=== PATIENT | male | born 1935 | race Caucasian/White ===

== ENCOUNTER 2020-02-04 10:49 | Emergency (ER) | payer OTHER ==
[~2020-02-04] VITALS: Ht 180.3 cm; Wt 86.2 kg
[~2020-02-04 10:49] MED LIST: FLUT250M9; FURO1TAB31; LISI-646; POTATAB
[2020-02-04] MEDS ORDERED: ASPirin 81 mg TAB PO ONE (11:30)
[2020-02-04] MEDS ORDERED: SODIUM CHLORIDE 0.9% 1,000 ML IV ONE (11:30)
[2020-02-04 12:00] LABS: Basophils # (auto) 0.1 10 ^3/uL (0-0.2); Basophils % (auto) 0.9 % (0.0-2.0); Eosinophils # (auto) 0.1 10 ^3/uL (0-0.8); Eosinophils % (auto) 1.2 % (0.0-7.0); Hematocrit 42.2 % (41.0-53.0); Hemoglobin 13.9 g/dL (13.5-17.5); Lymphocytes # (auto) 0.6 10 ^3/uL (0.4-5.4); Lymphocytes % (auto) 9.9 % (10.0-50.0); Mean Corpuscular Hemoglobin 30.7 pg (28.0-32.0); Monocytes # (auto) 0.4 10 ^3/uL (0-1.3); Monocytes % (auto) 5.6 % (0.0-12.0); Neutrophils # (auto) 5.3 10 ^3/uL (1.6-8.6); Neutrophils % (auto) 82.4 % (37.0-80.0); Platelet Count (auto) 194 10^3/uL (140-450); Red Blood Cells 4.53 10^6/uL (4.5-5.90); Red Cell Distribution Width 15.9 % (11.8-14.3); White Blood Cell 6.4 10^3/uL (4.4-10.8)
[2020-02-04 12:11] LABS: Albumin 3.6 g/dL (3.4-5.0); Anion Gap 10 (5-15); Blood Urea Nitrogen 25 mg/dL (7-18); Calcium 8.7 mg/dL (8.5-10.1); Carbon Dioxide 30 mmol/L (21-32); Chloride 100 mmol/L (98-107); Glucose 186 mg/dL (74-106); Sodium 140 mmol/L (136-145)
[2020-02-04 12:18] LABS: Alanine Aminotransferase 28 U/L (16-61); Alkaline Phosphatase 106 U/L (45-117); Aspartate Aminotransferase 16 U/L (15-37); Bilirubin, Total 0.5 mg/dL (0.2-1.0); GFR African American 43 mL/min; GFR Non-African American 36 mL/min; Total Protein 7.1 g/dL (6.4-8.2)
[2020-02-04 12:25] LABS: INR 1.01 (0.9-1.15); Partial Thromboplastin Time 22.4 sec (23.0-31.2)
[2020-02-04 12:26] LABS: Potassium 2.5 mmol/L (3.5-5.1)
[2020-02-04] MEDS ORDERED: POTASSIUM EFFERVESENT TAB 25 MEQ PO ONE (12:45)
[2020-02-04 17:00] VITALS: BP 130/56
== END 2020-02-04 17:52 | disposition home or self-care (01) ==
LOC: EDBD 10:49 → ER 10:49
DX: R53.1 Weakness (principal); E87.6 Hypokalemia; R73.9 Hyperglycemia, unspecified; R60.0 Localized edema; J84.10 Pulmonary fibrosis, unspecified; I13.0 Hypertensive heart and chronic kidney disease with heart failure and stage 1 through stage 4 chronic kidney disease, or unspecified chronic kidney disease; N18.30 Chronic kidney disease, stage 3 unspecified; I50.9 Heart failure, unspecified; J44.9 Chronic obstructive pulmonary disease, unspecified; Z90.49 Acquired absence of other specified parts of digestive tract
CPT/HCPCS: 36415; 71045; 80053; 83735; 83880; 84443; 84484; 85025; 85379; 85610; 85730; 93005; 96360; 99285; J7030

== ENCOUNTER 2022-11-10 20:16 | Inpatient (IN) | payer OTHER ==
[~2022-11-10] VITALS: Ht 180.3 cm; Wt 93.7 kg
[~2022-11-10 20:16] MED LIST changes: -LISI-646; +LISI20TA56
[2022-11-10] MEDS ORDERED: dilTIAZem 25 MG/5 ML VIAL IV ONE ×2 (20:30→21:15)
[2022-11-10 20:35] VITALS: PULSE 127; RESP 12; O2SAT 99
[2022-11-10 21:04] LABS: Basophils # (auto) 0 10 ^3/uL (0-0.2); Basophils % (auto) 0.7 % (0.0-2.0); Eosinophils # (auto) 0.5 10 ^3/uL (0-0.8); Eosinophils % (auto) 7.3 % (0.0-7.0); Hematocrit 24.8 % (41.0-53.0); Hemoglobin 8.1 g/dL (13.5-17.5); Lymphocytes # (auto) 1.1 10 ^3/uL (0.4-5.4); Lymphocytes % (auto) 17.3 % (10.0-50.0); Mean Corpuscular Hgb Conc. 32.5 g/dL (32.0-36.0); Mean Corpuscular Volume 92.3 fL (80.0-100.0); Monocytes # (auto) 0.6 10 ^3/uL (0-1.3); Monocytes % (auto) 9.3 % (0.0-12.0); Neutrophils # (auto) 4.2 10 ^3/uL (1.6-8.6); Neutrophils % (auto) 65.4 % (37.0-80.0); Nucleated Red Blood Cells % 0.1 %; Red Blood Cells 2.69 10^6/uL (4.5-5.90); Red Cell Distribution Width 15.6 % (11.8-14.3); White Blood Cell 6.5 10^3/uL (4.4-10.8)
[2022-11-10 21:06] LABS: Urine Bacteria FEW /hpf (None Seen); Urine Blood TRACE /uL (Negative); Urine Specific Gravity 1.008 (1.001-1.035); Urine WBC 57 /hpf (0 - 3)
[2022-11-10] MEDS ORDERED: cefTRIAXone 1GM/50ML D5W 50 ML IV ONE (21:15)
[2022-11-10 21:19] LABS: Albumin 2.9 g/dL (3.4-5.0); Calcium 8.2 mg/dL (8.5-10.1); Magnesium 2.6 mg/dL (1.6-2.6)
[2022-11-10 21:21] LABS: INR 1.44 (0.9-1.15); Partial Thromboplastin Time 36.2 SEC (24.5-34.5)
[2022-11-10 21:22] LABS: BUN/Creatinine Ratio 18.9 (10.0-20.0); Bilirubin, Total 0.2 mg/dL (0.2-1.0); Total Protein 6.9 g/dL (6.4-8.2)
[2022-11-10 21:59] LABS: Potassium 2.8 mmol/L (3.5-5.1)
[2022-11-10] MEDS ORDERED: LIDOCAINE 2% JELLY 11ml (GLYDO) UR ONE (22:15)
[2022-11-10] MEDS ORDERED: POTASSIUM CHL 20MEQ/100ML 100 ML IV ONE (22:15)
[2022-11-10] MEDS ORDERED: ONDANSETRON HCL 4 MG/2 ML VIAL IV PRN (22:30)
[2022-11-10] MEDS ORDERED: NITROGLYCERIN 0.4 MG SL TAB SL PRN (22:30)
[2022-11-10] MEDS ORDERED: cefTRIAXone 1GM/50ML D5W 50 ML IV SCH (22:37)
[2022-11-10] MEDS ORDERED: METOPROLOL TARTRATE 1MG/1ML-5ML VIAL IV ONE (22:45)
[2022-11-10] MEDS ORDERED: DIGOXIN (250MCG/ML) 2 ML AMPULE IV ONE (23:30)
[2022-11-11 04:45] VITALS: PULSE 55; RESP 12; O2SAT 100
[2022-11-11 04:47] LABS: Basophils # (auto) 0 10 ^3/uL (0-0.2); Eosinophils # (auto) 0.5 10 ^3/uL (0-0.8); Mean Corpuscular Hemoglobin 30.4 pg (28.0-32.0); Monocytes # (auto) 0.6 10 ^3/uL (0-1.3)
[2022-11-11 04:49] LABS: Basophils % (auto) 0.5 % (0.0-2.0); Eosinophils % (auto) 7.4 % (0.0-7.0); Hemoglobin 7.7 g/dL (13.5-17.5); Lymphocytes # (auto) 0.8 10 ^3/uL (0.4-5.4); Lymphocytes % (auto) 12.5 % (10.0-50.0); Mean Corpuscular Hgb Conc. 33.3 g/dL (32.0-36.0); Mean Corpuscular Volume 91.3 fL (80.0-100.0); Monocytes % (auto) 8.8 % (0.0-12.0); Neutrophils # (auto) 4.6 10 ^3/uL (1.6-8.6); Neutrophils % (auto) 70.8 % (37.0-80.0); Nucleated Red Blood Cells % 0.1 %; Red Blood Cells 2.53 10^6/uL (4.5-5.90); Red Cell Distribution Width 15.4 % (11.8-14.3); White Blood Cell 6.6 10^3/uL (4.4-10.8)
[2022-11-11 05:06] LABS: BUN/Creatinine Ratio 20.5 (10.0-20.0); Calcium 8.3 mg/dL (8.5-10.1)
[2022-11-11 05:10] LABS: Potassium 2.9 mmol/L (3.5-5.1)
[2022-11-11] MEDS ORDERED: POTASSIUM CHL 20 Meq TABLET PO ONE (07:00)
[2022-11-11 07:40] VITALS: PULSE 55; RESP 10; O2SAT 100
[2022-11-11] MEDS: RANOLAZINE ER 500 MG TAB PO SCH ×2 (09:40→22:20)
[2022-11-11] MEDS: cefTRIAXone 1GM/50ML D5W 50 ML IV SCH (09:40)
[2022-11-11] MEDS: PANTOPRAZOLE 40 MG TAB PO SCH (09:41)
[2022-11-11] MEDS: RIVAROXABAN 15 MG TAB PO SCH (09:41)
[2022-11-11] MEDS ORDERED: FUROSEMIDE 40 MG TAB PO SCH (10:00)
[2022-11-11] MEDS ORDERED: METOPROLOL TARTRATE 25 MG TAB PO SCH (10:00)
[2022-11-11] MEDS ORDERED: ATORVASTATIN 20 MG TAB PO SCH (22:00)
[2022-11-11 22:04] VITALS: BP 124/71; PULSE 66; RESP 18; RESP 20; TEMP 98.3; O2SAT 100
[2022-11-11] MEDS: FUROSEMIDE 40 MG TAB PO SCH (22:20)
[2022-11-11] MEDS: METOPROLOL TARTRATE 25 MG TAB PO SCH (22:21)
[2022-11-12 05:00] VITALS: BP 119/36; PULSE 66; RESP 17; TEMP 98.3; O2SAT 95
[2022-11-12 07:01] LABS: BUN/Creatinine Ratio 20.4 (10.0-20.0); Calcium 8.6 mg/dL (8.5-10.1); Magnesium 2.6 mg/dL (1.6-2.6)
[2022-11-12 08:00] VITALS: PULSE 81
[2022-11-12] MEDS ORDERED: POTASSIUM CHL 20 Meq TABLET PO ONE (08:15)
[2022-11-12 09:00] VITALS: BP 124/65; PULSE 64; RESP 20; TEMP 98.5; O2SAT 99
[2022-11-12] MEDS ORDERED: FURO1TAB31 PO (09:46)
[2022-11-12] MEDS ORDERED: ISOS1TAB28 PO (09:46)
[2022-11-12] MEDS ORDERED: METO25TA5 PO (09:46)
[2022-11-12] MEDS ORDERED: RIVA15TA PO (09:47)
[2022-11-12] MEDS ORDERED: ATO40T PO (09:49)
[2022-11-12] MEDS ORDERED: RANO500T3 PO (09:49)
[2022-11-12] MEDS ORDERED: ASPI-325 PO (09:54)
[2022-11-12] MEDS ORDERED: ISOSORBIDE MONONITRATE ER 60 MG TAB PO SCH (10:00)
[2022-11-12] MEDS ORDERED: RANOLAZINE ER 500 MG TAB PO SCH (10:00)
[2022-11-12] MEDS: RIVAROXABAN 15 MG TAB PO SCH (10:00)
[2022-11-12] MEDS: PANTOPRAZOLE 40 MG TAB PO SCH (10:12)
[2022-11-12] MEDS: METOPROLOL TARTRATE 25 MG TAB PO SCH (10:12)
[2022-11-12] MEDS: FUROSEMIDE 40 MG TAB PO SCH (10:12)
[2022-11-12] MEDS: cefTRIAXone 1GM/50ML D5W 50 ML IV SCH (10:13)
[2022-11-12 12:51] VITALS: BP 124/65; PULSE 69; RESP 20; TEMP 98.5; O2SAT 99
[2022-11-12 13:00] VITALS: BP 103/49; PULSE 67; RESP 18; TEMP 98.6; O2SAT 96
== END 2022-11-12 15:29 | disposition hospice, home (50) | DRG 309 ==
LOC: ER 20:16 → EDBD 20:16 → TELE 22:32 → TELE-WESTW 11-11 21:29
PROVIDERS: ADMIT Internal Medicine Geriatric Medicine; ATTEND Internal Medicine Geriatric Medicine
DX: I48.20 Chronic atrial fibrillation, unspecified (principal); N39.0 Urinary tract infection, site not specified; D68.9 Coagulation defect, unspecified; N17.9 Acute kidney failure, unspecified; J96.10 Chronic respiratory failure, unspecified whether with hypoxia or hypercapnia; E87.3 Alkalosis; I13.0 Hypertensive heart and chronic kidney disease with heart failure and stage 1 through stage 4 chronic kidney disease, or unspecified chronic kidney disease; N18.4 Chronic kidney disease, stage 4 (severe); I50.42 Chronic combined systolic (congestive) and diastolic (congestive) heart failure; E78.5 Hyperlipidemia, unspecified; D64.9 Anemia, unspecified; E87.6 Hypokalemia; I25.10 Atherosclerotic heart disease of native coronary artery without angina pectoris; J44.9 Chronic obstructive pulmonary disease, unspecified; Z95.0 Presence of cardiac pacemaker; Z99.81 Dependence on supplemental oxygen; Z90.49 Acquired absence of other specified parts of digestive tract; Z88.5 Allergy status to narcotic agent; Z88.2 Allergy status to sulfonamides; Z88.1 Allergy status to other antibiotic agents; Z79.82 Long term (current) use of aspirin; Z79.899 Other long term (current) drug therapy
CPT/HCPCS: 36415; 71045; 80048; 80053; 81001; 83735; 83880; 84484; 85025; 85610; 85730; 87086; 87088; 87186; 93005; 93306; 99291; G0378; J0696; J3480